=== PATIENT | male | born 1935 | race Caucasian/White ===

== ENCOUNTER 2023-05-08 07:21 | Inpatient (IN) | payer MEDICARE, SELFPAY ==
[2023-05-08] VITALS (22 sets, daily range): BP systolic 103–162; BP diastolic 43–95; PULSE 56–98; RESP 11–21; TEMP 36.2–37.1; O2SAT 91–99; BMI 22.8
--- NOTE | 2023-05-08 | DI.RAD.S_ITS ---
PROCEDURE: XR PELVIS 1-2V INDICATIONS: Post-op TECHNIQUE: 1 view of the lower pelvis acquired. COMPARISON: [facility], , XR PELVIS 1-2V, 05/08/2023, 12:52. FINDINGS: Bones: Patient is status post left hip arthroplasty, with hardware components in expected positions. The hip joint appears congruent. The visualized bony structures appear intact. Moderate right hip osteoarthritis Soft tissues: Overlying postoperative changes are noted. No suspicious soft tissue densities. IMPRESSION: Left hip arthroplasty in good position Approved by: Ruben Marrero M.D. on 05/08/2023 at 16:00
--- NOTE | 2023-05-08 | DI.RAD.S_ITS ---
PROCEDURE: XR PELVIS 1-2V INDICATIONS: INTRA OP TECHNIQUE: Intra-operative view of the pelvis and hip acquired. COMPARISON: None. FINDINGS: Bones: Intraoperative devices prior to placement of arthroplasty prostheses are in expected positions. No fractures or suspicious bony lesions. Soft tissues: Overlying surgical instrumentation IMPRESSION: Intraoperative left hip arthroplasty in progress Approved by: Ruben Marrero M.D. on 05/08/2023 at 12:51
--- NOTE | 2023-05-08 07:26 | DI.RAD.S_ITS ---
PROCEDURE: XR HIP W PEL IF DONE LT 2V INDICATIONS: pain fall TECHNIQUE: AP pelvis with lateral view(s) of the left hip(s). COMPARISON: None. FINDINGS: Bones: There is an angulated mildly displaced left femoral neck fracture. No dislocation at the hip joint. Arthritic changes are present within the lower lumbar spine and right hip. Soft tissues: The visualized bowel gas pattern is normal. No suspicious soft tissue calcifications. IMPRESSION: Mildly displaced left femoral neck fracture. Dictated by: Emerald Meneses M.D. on 05/08/2023 at 8:52 Approved by: Emerald Meneses M.D. on 05/08/2023 at 8:53
--- NOTE | 2023-05-08 07:29 | ED.FALL ---
HPI - Fall General Chief Complaint: Fall Stated Complaint: Fall Time Seen by Provider: 05/08/23 07:25 History of Present Illness HPI Narrative: Patient 88-year-old healthy male who presents today with fall. They are visiting from [place] he was actually on his way to the airport to go back home when he tripped on something on the porch landing on his left hip. No head injury no loss of consciousness. He is not on any anticoagulation or antiplatelet medication. He denies any rib pain neck pain or any other injury. Related Data Allergies Allergy/AdvReac Type Severity Reaction Status Date / Time No Known Drug Allergies Allergy Verified 05/08/23 09:13 Patient History Social History Smoking Status: Never smoker Exam Initial Vital Signs Initial Vital Signs: Vital Signs Temperature 98.6 F 05/08/23 07:28 Pulse Rate 63 05/08/23 07:28 Respiratory Rate 20 05/08/23 07:28 Blood Pressure 162/74 H 05/08/23 07:28 Pulse Oximetry 97 05/08/23 07:28 Oxygen Delivery Method Room Air 05/08/23 07:28 GENERAL: Alert very pleasant well-appearing 88-year-old male HEENT: Head atraumatic,EOMI, pupils reactive, face symmetric, moist mucous membranes NECK: Supple no vertebral tenderness CARDIOVASCULAR: Regular rate and rhythm without murmurs, rubs or gallops. RESPIRATORY: Breath sounds equal bilaterally, no wheezes rales or rhonchi. ABDOMEN: Soft, nontender. Normoactive bowel sounds all 4 quadrants. No guarding or rebound. EXTREMITIES: Normal range of motion, no clubbing or edema. Neurovascularly intact Tender left hip distal pedal pulse present pain with palpation no significant pain internal external rotation NEUROLOGICAL: Alert and oriented x4. Moving all extremities SKIN: Warm, dry, no laceration, no petechiae, no rashes or lesions. Course Orders Ordered: ED Orders 05/08/23 07:26 XR hip w pel if done LT 2V Stat 05/08/23 08:44 CMP [Comprehensive Metabolic Panel] Stat 05/08/23 09:20 CBC Auto Diff [Complete Blood Count AUTO DIFF] Stat Lactated Ringer's (Lactated Ringers) 1,000 mls @ 42 mls/hr IV CONT HAFSA Discontinued Medications Morphine Sulfate (Morphine 2 Mg/Ml Inj) 2 mg IV NOW ONE Stop: 05/08/23 08:40 Last Admin: 05/08/23 08:51 Dose: 2 mg Documented By: CAMERON Vital Signs Vital signs: Vital Signs - 8 hr 05/08/23 07:28 05/08/23 07:28 05/08/23 07:30 Temperature 98.6 F Pulse Rate 63 62 64 Respiratory Rate 20 Blood Pressure 162/74 H Pulse Oximetry 97 97 97 Oxygen Delivery Method Room Air 05/08/23 08:00 05/08/23 08:30 05/08/23 08:43 Temperature Pulse Rate 57 L 64 Respiratory Rate Blood Pressure 135/89 Pulse Oximetry 96 97 Oxygen Delivery Method 05/08/23 08:43 05/08/23 09:00 05/08/23 09:30 Temperature Pulse Rate 63 58 L 59 L Respiratory Rate Blood Pressure Pulse Oximetry 97 98 98 Oxygen Delivery Method 05/08/23 09:55 05/08/23 09:55 Temperature Pulse Rate 56 L Respiratory Rate Blood Pressure 149/79 H Pulse Oximetry 97 Oxygen Delivery Method MDM - Fall Lab Data 05/08/23 09:20 05/08/23 08:44 Labs: Lab Results 05/08/23 05/08/23 Range/Units 08:44 09:20 WBC 9.3 (4.5-11.0) X10^3/uL RBC 4.29 L (4.5-5.9) X10^6/uL Hgb 13.1 L (13.5-17.5) g/dL Hct 38.5 L (41-53) % MCV 89.7 (80-100) fL MCH 30.4 (26-34) PG MCHC 33.9 (30-36) % RDW 13.1 (11.6-14.8) % Plt Count 185 (150-400) X10^3/uL Neut % (Auto) 85.4 H (50-75) % Lymph % (Auto) 7.4 L (25-40) % Howell % (Auto) 4.6 (3-14) % Eos % (Auto) 2.0 (2-4) % Baso % (Auto) 0.6 (0-2) % Neut # (Auto) 8000 H (6372-2046) /uL Lymph # (Auto) 700 L (1647-1927) /uL Howell # (Auto) 400 (0-900) /uL Eos # (Auto) 200 (0-450) /uL Baso # (Auto) 100 (0-100) /uL Sodium 135 L (137-145) mmol/L Potassium 3.9 (3.4-5.1) mmol/L Chloride 103 (98-107) mmol/L Carbon Dioxide 26 (22-32) mmol/L BUN 23 H (9-20) mg/dL Creatinine 1.01 (0.66-1.25) mg/dL Estimated GFR > 60 (>60) mL/min BUN/Creatinine Ratio 22.8 H (6-22) Glucose 89 (80-110) mg/dL Calcium 9.5 (8.4-10.2) mg/dL Total Bilirubin 1.7 H (0.2-1.3) mg/dL AST 26 (17-59) IU/L ALT 17 (<50) IU/L Alkaline Phosphatase 76 (38-126) U/L Total Protein 7.1 (6.3-8.2) g/dL Albumin 4.2 (3.5-5.0) g/dL Globulin 2.9 (1.7-4.1) g/dL Albumin/Globulin Ratio 1.4 (1.0-2.8) Imaging Data Extremity x-ray #1: Radiologist's Impression: PROCEDURE: XR HIP W PEL IF DONE LT 2V INDICATIONS: pain fall TECHNIQUE: AP pelvis with lateral view(s) of the left hip(s). COMPARISON: None. FINDINGS: Bones: There is an angulated mildly displaced left femoral neck fracture. No dislocation at the hip joint. Arthritic changes are present within the lower lumbar spine and right hip. Soft tissues: The visualized bowel gas pattern is normal. No suspicious soft tissue calcifications. IMPRESSION: Mildly displaced left femoral neck fracture. Dictated by: Emerald Meneses M.D. on 05/08/2023 at 8:52 MDM Narrative Medical decision making narrative: Patient healthy 88-year-old male who presents today with a mechanical ground level fall landing on his left hip. X-ray confirms a left femoral neck fracture. Neurovascularly intact. No other injuries. Blood work has been reviewed and overall reassuring. Orthopedics Dr. Garcia updated patient's symptoms test results keep NPO will try and get fixed today Dr. Lester accepts patient Discharge Plan Departure Patient Disposition: Admitted As Inpatient Clinical Impression: Closed left hip fracture Admit Date/Time: 05/08/23 10:16 Admit Provider: Dana Lester
--- NOTE | 2023-05-08 07:49 | PC.NURSE ---
pt declined to have IV placed and bloodwork drawn. states that she just wanted the xray to get done to check for breaks. dr costello notified.
[2023-05-08] MEDS: MORPHINE 2 MG/ML INJ IV (08:51)
--- NOTE | 2023-05-08 09:01 | PM.CN ---
History of Present Illness Consult details Date Patient Seen: 05/08/23 Time Patient Seen: 11:13 Chief complaint: Fall Reason for consult: Left displaced femoral neck fracture Requesting provider: Suzy Cosme Narrative: 88-year-old male was on his way to the airport to go back home to [place] this morning and fell in the driveway sustained a displaced left femoral neck fracture. Seen at [facility]. Indicated for admission and fixation of his hip fracture. Hit his left elbow and has a bruise. is with him and his POA. Patient has some mild dementia. No other medications or serious medical problems. Has had bilateral knee replacements. Remote history of head trauma as a young person with multiple cranial operations. Meds Home Medications and Allergies Allergies Allergy/AdvReac Type Severity Reaction Status Date / Time No Known Drug Allergies Allergy Verified 05/08/23 09:13 Review of Systems Review of Systems Narrative: Dementia mild ROS: Yes All systems reviewed with the patient and are negative except as otherwise documented Exam Vital Signs (past 8 hours): - 05/08/23 07:28 Temperature 98.6 F Pulse Rate 63 Respiratory Rate 20 Blood Pressure 162/74 H Pulse Oximetry 97 Oxygen Delivery Method Room Air Oxygen Delivery Method Room Air Narrative Exam Narrative: Alert oriented no acute distress lying in bed. Spouse at bedside HEENT exam Normocephalic atraumatic Heart regular rate and rhythm Lungs clear to auscultation Left upper extremity with ecchymosis around elbow demonstrates full flexion extension of the elbow. Sensation grossly intact to light touch Moving right upper extremity without limitation No tenderness to the right lower extremity Left lower extremity is shortened and externally rotated tenderness around the left groin. Demonstrates dorsiflexion plantar flexion of the ankle well-healed surgical scar over the knee consistent with knee replacement compartments soft. Palpable distal pulses. Remainder of motor and strength exam on left lower extremity deferred due to known fracture Objective Imaging AP pelvis and left lateral hip: My impression: AP pelvis and left lateral hip Displaced left femoral neck fracture. Right hip arthritis Labs 05/08/23 09:20 05/08/23 08:44 PFS Social History marital status: household members: spouse Tobacco & Substance Use Smoking Status: Never smoker Assessment & Plan Assessment and plan (1) Closed left hip fracture: Qualifiers: Encounter type: initial encounter Qualified Code(s): S72.002A - Fracture of unspecified part of neck of left femur, initial encounter for closed fracture Status: Acute Plan Left displaced femoral neck fracture. Indicated for inpatient admission fixation was cemented hemiarthroplasty. 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 The advantage of surgery is immediate mobilization and weight-bearing and helps avoid the morbidity of prolonged bed rest. We discussed risks of heart attack stroke fracture persistent pain infection DVT and pulmonary embolism discussed risk for dislocation. Patient agrees to surgery. His spouse ANGEL signed a consent for him as he has been having trouble with his handwriting lately. Patient will be indicated for inpatient admission likely 2-3 night stay and we will need to have assistance with social work for dispo planning. [place] home [place] stairs and then eventually need to get back to [place]. Assessment & Plan narrative: Level decision-making series orthopedic injury hip fracture requires inpatient admission and surgical fixation. Surgical risks and benefits and alternatives discussed. Recommendation for surgical treatment. Time Spent With Patient Time with patient: 50 to 69 minutes with 50% spent counseling/coordinating care
[2023-05-08 09:07] LABS: Alanine Aminotransferase 17 IU/L (<50); Albumin 4.2 g/dL (3.5-5.0); Albumin Globulin Ratio 1.4 (1.0-2.8); Alkaline Phosphatase 76 U/L (38-126); Aspartate Aminotransferase 26 IU/L (17-59); BUN Creatinine Ratio 22.8 (6-22); Bilirubin Total 1.7 mg/dL (0.2-1.3); Blood Urea Nitrogen 23 mg/dL (9-20); Calcium 9.5 mg/dL (8.4-10.2); Carbon Dioxide 26 mmol/L (22-32); Chloride 103 mmol/L (98-107); Estimated Glomerular Filt Rate > 60 mL/min (>60); Globulin 2.9 g/dL (1.7-4.1); Glucose 89 mg/dL (80-110); HEMOLYSIS 27 (0-50); Potassium 3.9 mmol/L (3.4-5.1); Sodium 135 mmol/L (137-145); Total Protein 7.1 g/dL (6.3-8.2)
[2023-05-08 09:26] LABS: Add Manual Diff / Slide Review NO; Basophils Absolute Auto 100 /uL (0-100); Basophils Percent Auto 0.6 % (0-2); Eosinophils Absolute Auto 200 /uL (0-450); Hematocrit 38.5 % (41-53); Hemoglobin 13.1 g/dL (13.5-17.5); Lymphocytes Absolute Auto 700 /uL (1100-4500); Lymphocytes Percent Auto 7.4 % (25-40); Mean Corpuscular HGB Conc 33.9 % (30-36); Mean Corpuscular Hemoglobin 30.4 PG (26-34); Mean Corpuscular Volume 89.7 fL (80-100); Monocytes Absolute Auto 400 /uL (0-900); Monocytes Percent Auto 4.6 % (3-14); Neutrophils Absolute Auto 8000 /uL (1500-7000); Neutrophils Percent Auto 85.4 % (50-75); Platelet Count 185 X10^3/uL (150-400); Red Blood Cell Count 4.29 X10^6/uL (4.5-5.9); Red Cell Distribution Width 13.1 % (11.6-14.8); White Blood Cell Count 9.3 X10^3/uL (4.5-11.0)
--- NOTE | 2023-05-08 10:39 | PC.NURSE ---
1030 Patient admitted to room 204 from ED, awake and alert. VSS obtained. RT @ bedside (EKG). Off unit to Surgery accompanied by Ainsley GANNON. Belongings in room.
[2023-05-08] MEDS: LACTATED RINGERS 1,000 ML 42 ML IV ×2 (11:14→13:16)
--- NOTE | 2023-05-08 11:51 | P.OP_ITS ---
Operative Date/Time/Diagnoses Date of procedure: 05/08/23 Time of procedure: 12:15 Pre-op diagnosis: Left femoral neck fracture, displaced Post-op diagnosis: same Procedure & Clinicians Procedure: Hemiarthroplasty left hip for femoral neck fracture CPT 53368 Same procedure as scheduled: Yes Indications: Patient is an 88-year-old male that had a ground level fall this morning. They spend a few weeks a year and a quarter and most of the year in [place]. They were headed to the airport shuttle to go back to [facility] today when the fall occurred. Patient was unable to ambulate and was brought to [facility]. The patient has a displaced left femoral neck fracture. He is indicated for hemiarthroplasty. The patient and his POA was counseled regarding the rationale for this and the risk surgery. The risks include infection, bleeding, damage to nerves and blood vessels or tendons, and wound dehiscence, fracture, dislocation, persistence of pain, DVT, PE, inability to return to the desired level of function, hardware breakage or prominence, generalized dissatisfaction with the surgical procedure, need for additional procedures, cardiopulmonary complications and . The patient and his CONNIEA expressed understanding of all the risks and elected to proceed. Informed consent was signed. Surgeon: Brisa Garcia [employer] Mechanic: Lenin Ashley Anesthesia Type: General and Local Operative Notes Findings: Displaced femoral neck fracture, left Closure Type: primary Specimen(s): none sent Prosthetic devices, grafts, tissues, transplants, or devices: Diaz and nephew Synergy cemented stem cobalt chromium mL PMMA size 12 10 mm distal post centralizer Medium bone plug canal restrictor Tandem unipolar +4 taper sleeve 53 mm cobalt chromium tandem unipolar head Applied: catheter Estimated Blood Loss (mL): 200 Blood products transfused: none Tourniquet time (min): 0 Procedure in detail: During the operation, the services of a physician assistant wrestling coach were medically indicated and necessary to provide the exposure of the operative site for the surgical procedure and to maintain the limb in a proper position to carry out the operation safely and efficiently. Without a qualified advertising assistant manager being present this would extended the operative procedure and made the procedure technically more difficult to perform. Hemiarthroplasty for femoral neck fracture CPT code 79294. Patient was seen in the preoperative area the site of surgery was marked and informed consent confirmed. The patient was brought back to the operating room by the anesthesia team. Patient was positioned supine on the operative table. General anesthetic was administered. Patient was then moved into the lateral position. The hip fish hatchery assistant positioner pads were then placed. A well-padded axillary roll was placed and the arms were appropriately positioned. The affected lower extremity was prepped and draped from the ankle to the iliac crest with ChloraPrep in the standard fashion sterile drapes were placed. Formal time-out procedure was performed confirming the patient's side and site of surgery, presence of informed consent, administration of appropriate preoperative antibiotics. Hip was approached through a standard posterior approach. Dissection was carried down through the skin and subcutaneous tissues sharply through the skin and then with the Bovie through the subcutaneous tissues. The fascia suresh was exposed and opened. Fascia was opened using the Bovie and the gluteus oleg was spread with finger retraction. The Charnley retractor was placed. The inflamed bursa was resected. The piriformis was then identified. A Cobra retractor was placed under the gluteus medius to help expose the external rotators. The piriformis and short external rotators were tagged with a 2 Ethibond and divided off the trochanter. These were then retracted posteriorly to protect sciatic nerve. The femur was then flexed and internally rotated to present the femoral neck and the fracture. A corkscrew and a Moore were used to remove the femoral head from the acetabulum. This was measured to fit a 53 mm head. Next the femur was presented. A clean-up neck cut was made in a minimal fashion. The trial head size was trialed in the acetabulum. Attention was then turned to the femur. The canal was opened with a box cutting osteotome. This followed by the canal finder and a lateralizing Reamer. Then a curette was used laterally to remove additional bone. The tapered reamers were then used up to a size 12. Then broaching was sequentially done up to a size 12. Trial components were placed. The patient was stable in the position of sleep, squatting and could be put through a range of motion with 70? of internal rotation without dislocation. This was felt to be appropriate. An intraop a AP pelvis x-ray was obtained to assess component position. Position was good but the patient was a little short so decision was made to use a +4. Final components were then selected. The final stem was a size 12. Femoral canal was prepared . The distal medium restrictor was placed approximately 1 cm distal to the end of the planned implant. The bone was meticulously cleaned with pulse lavage. Canal was then packed with gauze. Two packages of cement were mixed and carefully pressurized into the femoral canal. The femoral component was then placed without difficulty. This was held in place until the cement hardened. The repeat trial reduction showed good range of motion and stability. The final head and neck were then carefully placed. The wound was irrigated. The capsule and muscular flap was repaired with the 2. Ethibond. Next the short external rotators were repaired to the greater trochanter through drill holes in the greater trochanter using the 2.5 drill and a Hewson suture Passer. These were tied with the leg in abduction. The wound was then irrigated again. The fascia suresh was closed with 0 Vicryl and the subcutaneous layer was closed with 2-0 Vicryl and the skin with morgan. An Aquacel dressing was placed. A pillow was placed for protection. The drapes removed and the patient was taken to the recovery room in good condition. There no immediate complications from this procedure. All counts were correct. Postoperative AP pelvis x-ray was obtained in the PACU showed appropriate alignment of the cemented hip hemiarthroplasty with no evidence of fracture. And patient demonstrated active dorsiflexion plantar flexion of the operative extremity in the PACU Complications: none Post-operative Condition: stable Disposition: PACU Plan for aftercare: Weightbear as tolerated Posterior hip precaution x6 weeks Pillows between the legs while in bed or if unable to keep regular pillows then abduction pillow Ambulate with the assistive device Lovenox 40 mg subQ for DVT prophylaxis x4 weeks for 28 total days 2 doses of Ancef postop antibiotics Dispo when medically stable Follow up in Orthopedic Clinic in 2 weeks for staple removal
[2023-05-08] MEDS: CEFAZOLIN 2 GM/100 ML PREMIX 100 ML IV ×2 (12:01→20:47)
[2023-05-08] MEDS: TRANEXAMIC ACID 1,000 MG in SODIUM CHLORIDE 0.9% 100 ML 200 MG IV ×2 (12:10→13:55)
--- NOTE | 2023-05-08 12:32 | SUR.OPER ---
Lateral on padded OR bed. Gel axillary roll. Arms secured on padded armboard with pillow supporting top arm. Padded hip positioner braces x4 - anterior and posterior chest and pelvis. Additional gel pad used anterior pelvis. Gel pad under bottom leg from knee to foot and secured with tape over sheet.
[2023-05-08] MEDS: BUPIVACAINE LIPOSOME 266 MG/20 ML VIAL INJ (12:45)
[2023-05-08] MEDS: BUPIVACAINE 0.25% (PF) VIAL 30 ML INJ (12:46)
[2023-05-08] MEDS: EPINEPHrine 1 MG/ML 0.15 MG INJ (12:48)
[2023-05-08] MEDS: LACTATED RINGERS 1,000 ML 100 ML IV (15:54)
[2023-05-08] MEDS: ACETAMINOPHEN 325 MG TABLET 650 MG PO ×2 (15:56→20:48)
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
[2023-05-08] MEDS: DOCUSATE 100 MG CAPSULE PO (20:48)
[2023-05-08] MEDS: SENNOSIDES 8.6 MG TABLET 17.2 MG PO (20:48)
[2023-05-09 00:40] VITALS: BP 99/51; PULSE 66; RESP 18; TEMP 36.8; O2SAT 96
[2023-05-09] MEDS: LACTATED RINGERS 1,000 ML 100 ML IV (02:18)
[2023-05-09] MEDS: ACETAMINOPHEN 325 MG TABLET 650 MG PO ×4 (03:31→20:45)
[2023-05-09] MEDS: CEFAZOLIN 2 GM/100 ML PREMIX 100 ML IV (03:32)
[2023-05-09 06:00] LABS: Add Manual Diff / Slide Review NO; Basophils Absolute Auto 0 /uL (0-100); Basophils Percent Auto 0.2 % (0-2); Eosinophils Absolute Auto 0 /uL (0-450); Eosinophils Percent Auto 0.3 % (2-4); Hematocrit 34.3 % (41-53); Hemoglobin 11.9 g/dL (13.5-17.5); Lymphocytes Absolute Auto 700 /uL (1100-4500); Lymphocytes Percent Auto 5.8 % (25-40); Mean Corpuscular HGB Conc 34.7 % (30-36); Mean Corpuscular Hemoglobin 30.9 PG (26-34); Monocytes Absolute Auto 800 /uL (0-900); Monocytes Percent Auto 6.4 % (3-14); Neutrophils Absolute Auto 10200 /uL (1500-7000); Neutrophils Percent Auto 87.3 % (50-75); Platelet Count 161 X10^3/uL (150-400); Red Blood Cell Count 3.85 X10^6/uL (4.5-5.9); White Blood Cell Count 11.7 X10^3/uL (4.5-11.0)
[2023-05-09 06:04] LABS: Alanine Aminotransferase 23 IU/L (<50); Albumin 3.4 g/dL (3.5-5.0); Albumin Globulin Ratio 1.2 (1.0-2.8); Alkaline Phosphatase 61 U/L (38-126); Aspartate Aminotransferase 64 IU/L (17-59); BUN Creatinine Ratio 19.3 (6-22); Bilirubin Total 1.5 mg/dL (0.2-1.3); Blood Urea Nitrogen 17 mg/dL (9-20); Calcium 8.7 mg/dL (8.4-10.2); Carbon Dioxide 27 mmol/L (22-32); Chloride 100 mmol/L (98-107); Estimated Glomerular Filt Rate > 60 mL/min (>60); Globulin 2.8 g/dL (1.7-4.1); Glucose 115 mg/dL (80-110); HEMOLYSIS < 15 (0-50); Potassium 3.7 mmol/L (3.4-5.1); Sodium 135 mmol/L (137-145); Total Protein 6.2 g/dL (6.3-8.2)
--- NOTE | 2023-05-09 06:49 | PM.PNPO.1 ---
Subjective Subjective Date Patient Seen: 05/09/23 Time Patient Seen: 07:24 Interval history: Pt sleeping, arouses easily to voice. Some confusion in answering questions but follows commands appropriately. States he has pain only when moving. Exam Vital Signs (past 8 hours): - 05/09/23 00:40 Temperature 98.2 F Pulse Rate 66 Respiratory Rate 18 Blood Pressure 99/51 L Pulse Oximetry 96 Oxygen Flow Rate 0 Oxygen Delivery Method Room Air Oxygen Flow Rate 0 Narrative Exam Narrative: 5/5 strength in PF, DF, EHL on left. 0/5 hip flexion, quadriceps, hamstrings. Calf soft and compressible. Aquacel dressing CDI. Objective Labs 05/09/23 05:30 05/09/23 05:30 Labs: Laboratory Results - last 24 hr 05/08/23 05/08/23 05/09/23 08:44 09:20 05:30 WBC 9.3 11.7 H RBC 4.29 L 3.85 L Hgb 13.1 L 11.9 L Hct 38.5 L 34.3 L MCV 89.7 89.0 MCH 30.4 30.9 MCHC 33.9 34.7 RDW 13.1 13.0 Plt Count 185 161 Neut % (Auto) 85.4 H 87.3 H Lymph % (Auto) 7.4 L 5.8 L [place] % (Auto) 4.6 6.4 Eos % (Auto) 2.0 0.3 L Baso % (Auto) 0.6 0.2 Neut # (Auto) 8000 H 72039 H Lymph # (Auto) 700 L 700 L [place] # (Auto) 400 800 Eos # (Auto) 200 0 Baso # (Auto) 100 0 Sodium 135 L 135 L Potassium 3.9 3.7 Chloride 103 100 Carbon Dioxide 26 27 BUN 23 H 17 Creatinine 1.01 0.88 Estimated GFR > 60 > 60 BUN/Creatinine Ratio 22.8 H 19.3 Glucose 89 115 H Calcium 9.5 8.7 Total Bilirubin 1.7 H 1.5 H AST 26 64 H ALT 17 23 Alkaline Phosphatase 76 61 Total Protein 7.1 6.2 L Albumin 4.2 3.4 L Globulin 2.9 2.8 Albumin/Globulin Ratio 1.4 1.2 PFSH Social History marital status: household members: spouse Smoking Status: Never smoker Assessment & Plan Post-op Assessment and plan (1) Status post hip hemiarthroplasty: Assessment and Plan narrative: Weightbear as tolerated on left leg. Posterior hip precaution x6 weeks. PT while inpatient. Pillows between the legs while in bed or if unable to keep regular pillows then abduction pillow. Ambulate with the assistive device (walker) to prevent falls. Lovenox 40 mg subQ for DVT prophylaxis x4 weeks for 28 total days. Disposition and pain control per hospitalist service. Follow up in [facility] in 2 weeks for staple removal. If pt returns home prior to this time, staple removal can be done by PCP or another provider. He should f/u w/ Dr Garcia or local orthopedist in 6 weeks for repeat imaging and symptom check. Postoperative Procedures: Procedures Operation Date: 05/08/23 12:45 Actual Procedure Side Surgeon p Hip Hemiarthroplasty Left Brisa Garcia MD Postoperative day: 1
[2023-05-09 08:00] VITALS: BP 115/65; PULSE 76; RESP 18; TEMP 37.1; O2SAT 96
[2023-05-09] MEDS: ENOXAPARIN 40 MG/0.4 ML SYRINGE SUBCUT (09:11)
[2023-05-09] MEDS: DOCUSATE 100 MG CAPSULE PO ×2 (09:12→20:45)
[2023-05-09] MEDS: OXYCODONE IR 5 MG TABLET PO ×2 (09:12→15:38)
--- NOTE | 2023-05-09 11:02 | PT.IIE ---
Current Diagnoses Fracture of unspecified part of neck of left femur, initial encounter for closed fracture (05/08/23) Presence of unspecified artificial hip joint (05/08/23) Surgery Performed Operation Date: 05/08/23 12:45 Actual Procedures p Hip Hemiarthroplasty(Left) - Brisa Garcia MD Physical Therapy Inpatient Evaluation/Re-Eval M1 PT/OT-IP Prior Functional Status Start: 05/09/23 07:59 Freq: NEEDED Status: Active Protocol: Document 05/09/23 11:02 AW (Rec: 05/09/23 12:17 AW [id number]) Medical Review Prior Functional Status Communication Pt is able to make his needs known but with some confusion. Spouse confirms pt has baseline dementia. Mobility and Gait Independent to mod I using SPC inconsistently. Pt forgets to use AD. He has had other falls. Activities of Daily Living and IADL's Independent with basic ADL's. Spouse states he continues to drive but she has concerns about this. Social History Household Members spouse Living Arrangements House Number of Floors (Floors) One Floor Number of Stairs To Enter/Railing? 2 JOS[place]UA with no rail at front entrance. Garage entrance has rails but stairs are very tall . Home Environment Standard Height Toilet,Walk in Shower Home Equipment Straight Cane,Shower Seat with Backrest Employment Status Retired Additional Social History Comment Pt is a retired mechanical inspector. He lives with his in [place], [place]. They have a home in [place] where they stay when visiting local family. M2 PT-IP Current Condition Start: 05/09/23 07:59 Freq: NEEDED Status: Active Protocol: Document 05/09/23 11:02 AW (Rec: 05/09/23 12:17 AW [id number]) Physical Therapy Current Condition Current Condition Evaluation Date 05/09/23 Treatment Diagnosis L femoral neck fx s/p hemiarthroplasty; impaired mobility and gait Onset Date 05/08/23 M3 PT-IP Subjective Start: 05/09/23 07:59 Freq: NEEDED Status: Active Protocol: Document 05/09/23 11:02 AW (Rec: 05/09/23 12:17 AW [id number]) Subjective Physical Therapy Visit Type Type Initial Evaluation Visit Start Time 10:14 Visit Stop Time 11:02 Total Visit Minutes 48 Notes Pt's spouse arrived at the end of mobility assessment. Number of MARKETING EDITOR Visits 0 Physical Therapy Visit Comments Patient Comments Pt is willing to participate with PT. He denies pain at rest. Patient Goals Hopes to return to [place] soon. Therapy Pain Assessment Pain When Pain Assessed During Mobility Pain Present Pain Present Pain Reported Location Left Hip Intensity 8 Scale Used Numeric (0 - 10) Pain Behaviors Facial Grimacing,Wincing Pain Management Techniques Apply Cold,Timing of Activity with Medications M4 PT-IP Mobility and Gait Start: 05/09/23 07:59 Freq: NEEDED Status: Active Protocol: Document 05/09/23 11:02 AW (Rec: 05/09/23 12:17 AW [id number]) PT-Bed Mobility Assessment Supine to Sit Supine to Sit Moderate Assistance,1 Person Assistance,Head of Bed Elevated,Bedrails Scooting Scooting to Edge of Bed Moderate Assistance PT-Transfer Assessment Sit to and From Stand Sit to and from Stand Maximum Assistance,1 Person Assistance,2 Person Assistance ,Use of Upper Extremities Equipment Transfer Assistive Device Gait Belt,Front Wheeled Walker Orthotic/Prosthetic Devices or Brace: No Transfers Transfer Destination Chair Transfer Technique Stand Step Pivot Transfer Ability Level of Assist Moderate Assistance,Use of Upper Extremities Comments Mobility Comments Pt is found resting in bed, willing to participate with PT . See Other Assessments below for VS during tx. PT educates pt on his posterior hip precautions and weightbearing status. Pt is very [place] and appears to need extra processing time for instructions. Mod A to sit up to EOB. Pt requires extra time , verbal cues, and demo to scoot forward for feet flat on floor and for posterior hip precautions. Pt again needs verbal and tactile cues to maintain precautions during initial sit to stand attempt - max A using FWW. Pt stands ~ 15 seconds before requesting to sit but would like to try again. He stands with max assist and transfers to bedside chair. PT cues pt to line up with the chair and for hand placement to control descent as he sits. Pt needs continuous cues for safe mobility within precautions. He stands from the chair max A and uses FWW to ambulate to the sink and back. PT keeps verbal cues simple but pt struggles to follow directions and appears overwhelmed. He does not understand directions for hand placement and needs [place] guidance for safe transfers back to the chair. Pt is positioned reclined in the chair as care transitions to hospitalist MD and nursing. Gait Assessment Gait Gait Assistance Required: Contact Guard Assist,Minimum Assistance Distance (Feet) 10 Able to Maintain Weight Bearing Status Yes During Gait Assistive Devices Assistive Device Gait Belt,Front Wheeled Walker Gait Deviations General Gait Pattern Antalgic,Decreased Stride Length,Decreased Feet Clearance,Step-to Gait Factors Limiting Gait Function Factors Limiting Gait Function Difficulty Following Directions,Limited Range of Motion,Pain,Poor Balance,Poor Safety Awareness Comments Gait Comments Straight line gait is relatively fluid but pt struggles with changes in direction and turns, needs assist for walker management Stair Climbing Assessment Comments Stair Climbing Comments Not assessed PT-Balance Assessment Sitting Balance and Reactions Static Sitting Balance Ability Good Dynamic Sitting Balance Ability Good Standing Balance and Reactions Static Standing Balance Ability Poor Dynamic Standing Balance Ability Poor Device Used FWW M5 PT-IP Objective Assessments Start: 05/09/23 07:59 Freq: NEEDED Status: Active Protocol: Document 05/09/23 11:02 AW (Rec: 05/09/23 12:17 AW [id number]) Orientation Orientation/Cognition Level of Alertness Confusional State Orientation Name,Place,Situation Language Function Ability Hard of Hearing Safety Awareness Decreased Safety Awareness Memory Description Short Term Impaired Gross Range of Motion Upper Extremity ROM Assessment Within Functional Limits Lower Extremity ROM Assessment Left Impaired Strength Upper Extremity Strength Assessment Within Functional Limits Lower Extremity Strength Assessment Left Impaired Hip 3-/5 Knee 4/5 Comments Strength Comments RLE grossly 4/5 to 4+/5 Other Assessments Other Other Assessments BP 121/68 HR 79 supine BP 94/68 HR 82 sitting ( asymptomatic) BP 114/41 HR 100 after transfer M6 PT-IP Treatment Start: 05/09/23 07:59 Freq: NEEDED Status: Active Protocol: Document 05/09/23 11:02 AW (Rec: 05/09/23 12:17 AW [id number]) Physical Therapy Treatment Exercises Exercises Ankle Pumps,Gluteal Sets,Quad Sets,Heel Slides Education Education Provided Precautions,Weight Bearing Status,Post-Op Packet,Safety M7 PT-IP Assessment and Plan Start: 05/09/23 07:59 Freq: NEEDED Status: Active Protocol: Document 05/09/23 11:02 AW (Rec: 05/09/23 12:17 AW [id number]) PT Summary Assessment and Plan Potential Rehabilitation Potential Good Status of Condition at Evaluation Evolving Summary Impairments Pain,ROM,Strength,Balance, Cognition,Bed Mobility, Transfers,Gait Assessment Summary Gopi Lomeli is an 88 yo man seen for PT evaluation on POD1 following left hip hemiarthroplasty to treat femoral neck fracture. He broke his hip in a fall at his [place] home. He was just leaving to catch the shuttle back to the airport to return to his primary residence in [place] when he fell. Pt is typically modified independent with inconsistent use of SPC. He has dementia at baseline. He lives with his spouse. Their [place] home is one level with steps to enter. CLOF: Pt requires max verbal and tactile cues to maintain posterior hip precautions. He needs mod to max assist for transfers, min assist for short distance gait with FWW. Pt will require 24/7 assist at discharge to reduce his risk of hip dislocation. He would benefit from daily therapy activities to improve his strength, transfers, and gait. PT recommends SNF for daily rehab at this time but pt has potential to progress toward possible discharge home with assist. He would need near 24/ 7 assist to successfully manage at home. Will continue to assess and refine discharge recommendation based on mobility progression. Goals Bed Mobility Goal Standby Assistance Transfer Goal Contact Guard Assistance,Front Wheeled Walker Gait Goal Contact Guard Assistance,Front Wheel Walker Gait Distance 50 Other Goals - up/down 2 steps using SPC and RN SPINE/min assist - Pt maintains posterior hip precautions with all mobility Days to Meet Goals 10 Frequency of Treatment Frequency Of Treatment Twice a Day Treatment Plan Physical Therapy Treatment Plan Bed Mobility Training,Transfer Training,Gait Training, Therapeutic Exercise,Balance Retraining,Post Op Education, Discharge Planning,Hot or Cold Pack,Neuromuscular Re-ed Other Recommendations and Next Treatment continued education on hip Focus precautions. use simple cues. transfer training Precautions Posterior Hip Precautions No Hip Flexion > 90 degrees,No Hip Internal Rotation,No Hip Adduction Weight Bearing Status Weight Bearing Status Weight Bear as Tolerated Recommendations To Nursing Amount of Assist Needed 2 Person Assist Discharge Recommendations PT Discharge Recommendations SNF Rehab Equipment Needed for Home Before FWW Discharge Transportation Needs at Discharge Wheelchair/Cabulance
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
--- NOTE | 2023-05-09 11:49 | CM.DANOTE ---
Patient is an 88 yo male who was admitted on 05/08/23 for Fall/Hip Fx. Pt has MCR and COMM for insurance and his PCP is not listed. EMR was reviewed. Per MD, pt had a left femoral neck fx and elbow injury and was taken by Ortho for surgery yesterday 05/08/23. Pt not yet medically stable to d/c yet today and to work with PT/OT. Per PT, pt currently having some difficulty remembering hip precautions and recommending with wait staff 2PA but was 1PA with PT. SW met bedside with pt and spouse/DPOA Pat and explained role and they confirm they live client partner at their house here in [place] and were getting ready to fly to their home in [place] for the winter. Both are quite active and independent at baseline, spouse is still working and pt has some baseline short term memory loss. They deny any hx of HH or SNF. They have a local Dtr Lexii who lives in [place] and a granddtr who is local in [place] and both can assist some at d/c if needed. Spouse states they plan to stay in [place] now until pt more mobile with his ambulation before flying back to [place]. SW discussed possible options of HH vs SNF and provided Choice lists to review. Spouse states she is hopeful that pt can d/c to their home in [place] with HH and also some hired CG/PT that they know locally but spouse realistic that if pt cannot remember his hip precautions and is too much assist then he will need SNF rehab. Spouse aware of the Medicare qualifying days for SNF and plans to be bedside in the AM around 0930 to see how pt is doing towards determining SNF vs HH. If SNF needed, currently preference is to stay in [place] at [facility] as spouse is working remotely and can visit more easily. No HH preference at this time. SW called [facility] and made new referral and they will review and follow to determine if they can accept if SNF needed. Pt would have qualifying Medicare days for SNF by 05/11. Plan: SW to follow closely after further PT later today and then CG training with spouse bedside in the AM around 0930 towards helping determine [facility] vs home with HH and family assist. RIVER Pulido Discharge Planning/Care Management CM Discharge Assessment Start: 05/09/23 11:40 Freq: Status: Active Protocol: Document 05/09/23 11:40 BF (Rec: 05/09/23 11:44 BF [id number]) Discharge Planning Assessment Assigned Timber Rider RIVER Shultz DPOA/Assigned Designee Name spouse Nery Contact Information [phone] Advance Directives? No Advance Directives on File Yes History Provided By Patient,Significant Other, Medical Record Has Patient been admitted in last 30 No days? Prior Living Arrangements House Household Members spouse Type of transporation used prior to Relies on Others admit Independent with ADL's Yes: mostly Is patient alert and oriented? No: short term memory loss Needs Assistance With Meal Prep,Managing Medications ,Home Chores / Shopping Caregiver for Another No DME Already Rented / Owned FWW / Walker Patient/Family Preference [facility],Home with Home Health Comment SNF vs HH pending progress Barriers to Discharge No Comment spouse hopeful for home Discharge Plan [facility] Transportation Arrangement spouse and Dtr if safe for home vs SNF facility van Referrals Initiated [facility] Comment Pending further PT to determine HH vs SNF Medicare Choice List Provided Yes Medicare choice list reviewed on family electronic tablet with SNF/HH Preference [facility] reviewing in case SNF needed Has Agency SNF been contacted Yes Whiteboard Updated in Patient Room with Yes name and ext. # of Timber Rider Review Status In Process Please Provide Date Initial DC 05/09/23 Assessment Was Performed Next Review Type Continued Stay Review
--- NOTE | 2023-05-09 13:07 | PC.NURSE ---
wolf removed, pt tried to pull out his wolf. he's a little confused. wolf tip intact, pt tolerated well.
--- NOTE | 2023-05-09 15:59 | PT.IPTN ---
Current Diagnoses Fracture of unspecified part of neck of left femur, initial encounter for closed fracture (05/08/23) Presence of unspecified artificial hip joint (05/08/23) Surgery Performed Operation Date: 05/08/23 12:45 Actual Procedures p Hip Hemiarthroplasty(Left) - Brisa Garcia MD Physical Therapy Treatment Note M2 PT-IP Current Condition Start: 05/09/23 07:59 Freq: NEEDED Status: Active Protocol: Document 05/09/23 11:02 AW (Rec: 05/09/23 12:17 AW [id number]) Physical Therapy Current Condition Current Condition Evaluation Date 05/09/23 Treatment Diagnosis L femoral neck fx s/p hemiarthroplasty; impaired mobility and gait Onset Date 05/08/23 M3 PT-IP Subjective Start: 05/09/23 07:59 Freq: NEEDED Status: Active Protocol: Document 05/09/23 15:59 AW (Rec: 05/09/23 16:12 AW [id number]) Subjective Physical Therapy Visit Type Type Treatment Note Visit Start Time 15:30 Visit Stop Time 15:54 Total Visit Minutes 24 Notes Pt's step-Lexii horton, is present throughout Number of FINANCIAL COMPLIANCE OFFICER Visits 0 Physical Therapy Visit Comments Patient Comments Pt is feeling uncomfortable in the chair, hopeful to reposition after trying to walk. Therapy Pain Assessment Pain When Pain Assessed At Rest Pain Present Pain Present Denied Pain Location Left Hip Intensity 9 Scale Used Numeric (0 - 10) Pain Behaviors Facial Grimacing,Wincing Pain Management Techniques Apply Cold,Timing of Activity with Medications M4 PT-IP Mobility and Gait Start: 05/09/23 07:59 Freq: NEEDED Status: Active Protocol: Document 05/09/23 15:59 AW (Rec: 05/09/23 16:12 AW [id number]) PT-Transfer Assessment Sit to and From Stand Sit to and from Stand Maximum Assistance,1 Person Assistance,Use of Upper Extremities Equipment Transfer Assistive Device Gait Belt,Front Wheeled Walker Orthotic/Prosthetic Devices or Brace: No Transfers Transfer Destination Chair Transfer Technique Stand Step Pivot Transfer Ability Level of Assist Moderate Assistance,Use of Upper Extremities Comments Mobility Comments Gopi is up in the chair with feet on the ground. His left hip rests in internal rotation . PT educates pt and daughter on neutral positioning. Max A and verbal cues for knee extension to stand to FWW. Pt finds his balance and ambulates 15 feet in the room, slightly steadier during turns than at the AM session. Cues are needed to avoid left hip internal rotation during turns. Pt returns to sitting in the chair with verbal and tactile cues for hip precautions. Gait Assessment Gait Gait Assistance Required: Contact Guard Assist,Minimum Assistance,1 Person Assist Distance (Feet) 15 Able to Maintain Weight Bearing Status Yes During Gait Assistive Devices Assistive Device Gait Belt,Front Wheeled Walker Gait Deviations General Gait Pattern Antalgic,Decreased Stride Length,Decreased Feet Clearance,Step-to Gait Factors Limiting Gait Function Factors Limiting Gait Function Difficulty Following Directions,Limited Range of Motion,Pain,Poor Balance,Poor Safety Awareness Comments Gait Comments PT cues pt to stay more centered in the walker for optimal support and ability to offload LLE. Stair Climbing Assessment Comments Stair Climbing Comments Not assessed PT-Balance Assessment Sitting Balance and Reactions Static Sitting Balance Ability Good Dynamic Sitting Balance Ability Good Standing Balance and Reactions Static Standing Balance Ability Fair Dynamic Standing Balance Ability Fair Device Used FWW M5 PT-IP Objective Assessments Start: 05/09/23 07:59 Freq: NEEDED Status: Active Protocol: Document 05/09/23 11:02 AW (Rec: 05/09/23 12:17 AW [id number]) Orientation Orientation/Cognition Level of Alertness Confusional State Orientation Name,Place,Situation Language Function Ability Hard of Hearing Safety Awareness Decreased Safety Awareness Memory Description Short Term Impaired Gross Range of Motion Upper Extremity ROM Assessment Within Functional Limits Lower Extremity ROM Assessment Left Impaired Strength Upper Extremity Strength Assessment Within Functional Limits Lower Extremity Strength Assessment Left Impaired Hip 3-/5 Knee 4/5 Comments Strength Comments RLE grossly 4/5 to 4+/5 Other Assessments Other Other Assessments BP 121/68 HR 79 supine BP 94/68 HR 82 sitting ( asymptomatic) BP 114/41 HR 100 after transfer M6 PT-IP Treatment Start: 05/09/23 07:59 Freq: NEEDED Status: Active Protocol: Document 05/09/23 15:59 AW (Rec: 05/09/23 16:12 AW [id number]) Physical Therapy Treatment Exercises Exercises Ankle Pumps,Gluteal Sets,Quad Sets,Heel Slides Education Education Provided Precautions,Safety M7 PT-IP Assessment and Plan Start: 05/09/23 07:59 Freq: NEEDED Status: Active Protocol: Document 05/09/23 15:59 AW (Rec: 05/09/23 16:12 AW [id number]) PT Summary Assessment and Plan Potential Rehabilitation Potential Good Summary Impairments Pain,ROM,Strength,Balance, Cognition,Bed Mobility, Transfers,Gait Progress Towards Goals Slow Progress due to Pain Assessment Summary Gopi is motivated to work with PT but needs consistent cues for hip precautions. He walked five feet further than at AM session but was grimacing by the end and looking quite fatigued. Transitional movements remain Gopi's biggest challenge - both in terms of pain and with precautions. Gopi should benefit from further acute PT. Recommend SNF rehab at discharge as of this writing. PT to conduct caregiver training tomorrow AM as pt will need near 24/7 assist at discharge to reduce his risk of hip dislocation. Goals Bed Mobility Goal Standby Assistance Transfer Goal Contact Guard Assistance,Front Wheeled Walker Gait Goal Contact Guard Assistance,Front Wheel Walker Gait Distance 50 Other Goals - up/down 2 steps using SPC and EXECUTIVE ADMINISTRATIVE ASSISTANT/min assist - Pt maintains posterior hip precautions with all mobility Days to Meet Goals 10 Frequency of Treatment Frequency Of Treatment Twice a Day Treatment Plan Physical Therapy Treatment Plan Bed Mobility Training,Transfer Training,Gait Training, Therapeutic Exercise,Balance Retraining,Post Op Education, Discharge Planning,Hot or Cold Pack,Neuromuscular Re-ed Other Recommendations and Next Treatment continued education on hip Focus precautions. gait with chair follow. caregiver training with spouse to assist with DCP Precautions Posterior Hip Precautions No Hip Flexion > 90 degrees,No Hip Internal Rotation,No Hip Adduction Weight Bearing Status Weight Bearing Status Weight Bear as Tolerated Recommendations To Nursing Amount of Assist Needed 1 Person Assist,2 Person Assist Discharge Recommendations PT Discharge Recommendations SNF Rehab Equipment Needed for Home Before FWW Discharge Transportation Needs at Discharge Wheelchair/Cabulance
[2023-05-09 16:00] VITALS: BP 130/57; PULSE 91; RESP 18; TEMP 38.3; O2SAT 94
--- NOTE | 2023-05-09 18:12 | PC.NURSE ---
pt was febrile, tylenol was already given, cold compresses. fever down to 99.0
[2023-05-09 19:28] VITALS: TEMP 37.1
[2023-05-09] MEDS: SENNOSIDES 8.6 MG TABLET 17.2 MG PO (20:45)
[2023-05-09] MEDS: IBUPROFEN 400 MG TABLET PO (20:45)
[2023-05-10 00:45] VITALS: BP 117/56; PULSE 73; RESP 16; TEMP 37.4; O2SAT 94
[2023-05-10 05:56] LABS: Add Manual Diff / Slide Review NO; Basophils Absolute Auto 0 /uL (0-100); Basophils Percent Auto 0.3 % (0-2); Eosinophils Absolute Auto 300 /uL (0-450); Eosinophils Percent Auto 3.3 % (2-4); Hematocrit 33.3 % (41-53); Hemoglobin 11.4 g/dL (13.5-17.5); Lymphocytes Absolute Auto 900 /uL (1100-4500); Lymphocytes Percent Auto 9.8 % (25-40); Mean Corpuscular HGB Conc 34.1 % (30-36); Mean Corpuscular Hemoglobin 30.9 PG (26-34); Mean Corpuscular Volume 90.5 fL (80-100); Monocytes Absolute Auto 600 /uL (0-900); Monocytes Percent Auto 6.6 % (3-14); Neutrophils Absolute Auto 7300 /uL (1500-7000); Platelet Count 129 X10^3/uL (150-400); Red Blood Cell Count 3.69 X10^6/uL (4.5-5.9); Red Cell Distribution Width 13.2 % (11.6-14.8); White Blood Cell Count 9.1 X10^3/uL (4.5-11.0)
[2023-05-10 06:06] LABS: Alanine Aminotransferase 25 IU/L (<50); Albumin 3.3 g/dL (3.5-5.0); Albumin Globulin Ratio 1.2 (1.0-2.8); Alkaline Phosphatase 55 U/L (38-126); Aspartate Aminotransferase 133 IU/L (17-59); BUN Creatinine Ratio 18.8 (6-22); Bilirubin Total 1.9 mg/dL (0.2-1.3); Blood Urea Nitrogen 18 mg/dL (9-20); Calcium 8.8 mg/dL (8.4-10.2); Carbon Dioxide 29 mmol/L (22-32); Chloride 101 mmol/L (98-107); Estimated Glomerular Filt Rate > 60 mL/min (>60); Globulin 2.7 g/dL (1.7-4.1); Glucose 92 mg/dL (80-110); HEMOLYSIS < 15 (0-50); Potassium 4.3 mmol/L (3.4-5.1); Sodium 135 mmol/L (137-145)
[2023-05-10 08:00] VITALS: BP 104/58; PULSE 86; RESP 16; TEMP 36.1; O2SAT 97
[2023-05-10] MEDS: DOCUSATE 100 MG CAPSULE PO (08:37)
[2023-05-10] MEDS: polyethylene glycoL 3350 17 GM POWD.PACK PO (08:37)
[2023-05-10] MEDS: ACETAMINOPHEN 325 MG TABLET 650 MG PO ×2 (08:38→13:06)
[2023-05-10] MEDS: ENOXAPARIN 40 MG/0.4 ML SYRINGE SUBCUT (08:38)
[2023-05-10] MEDS: IBUPROFEN 400 MG TABLET PO ×2 (08:38→13:06)
--- NOTE | 2023-05-10 09:33 | PT.IPTN ---
Current Diagnoses Fracture of unspecified part of neck of left femur, initial encounter for closed fracture (05/08/23) Presence of unspecified artificial hip joint (05/08/23) Surgery Performed Operation Date: 05/08/23 12:45 Actual Procedures p Hip Hemiarthroplasty(Left) - Brisa Garcia MD Physical Therapy Treatment Note M2 PT-IP Current Condition Start: 05/09/23 07:59 Freq: NEEDED Status: Active Protocol: Document 05/09/23 11:02 AW (Rec: 05/09/23 12:17 AW [id number]) Physical Therapy Current Condition Current Condition Evaluation Date 05/09/23 Treatment Diagnosis L femoral neck fx s/p hemiarthroplasty; impaired mobility and gait Onset Date 05/08/23 M3 PT-IP Subjective Start: 05/09/23 07:59 Freq: NEEDED Status: Active Protocol: Document 05/10/23 10:07 TS (Rec: 05/10/23 10:33 TS [id number]) Subjective Physical Therapy Visit Type Type Treatment Note Visit Start Time 09:33 Visit Stop Time 10:02 Total Visit Minutes 29 Notes Daughter and spouse present for caregiver training. Number of MOTORCYLES FINAL INSPECTOR Visits 1 Physical Therapy Visit Comments Patient Comments Pt reports feeling better today, agreeable to PT. Therapy Pain Assessment Pain When Pain Assessed During Mobility Pain Present Pain Present Pain Reported Location Left Hip Description With Movement Pain Behaviors Facial Grimacing,Wincing Pain Management Techniques Apply Cold,Timing of Activity with Medications M4 PT-IP Mobility and Gait Start: 05/09/23 07:59 Freq: NEEDED Status: Active Protocol: Document 05/10/23 10:07 TS (Rec: 05/10/23 10:33 TS [id number]) PT-Bed Mobility Assessment Supine to Sit Supine to Sit Standby Assistance,Minimal Assistance,1 Person Assistance ,Head of Bed Elevated Sit to Supine Sit to Supine Standby Assistance,Minimal Assistance,1 Person Assistance Scooting Scooting to Edge of Bed Contact Guard Assistance PT-Transfer Assessment Sit to and From Stand Sit to and from Stand Contact Guard Assistance, Minimal Assistance,1 Person Assistance,Use of Upper Extremities Equipment Transfer Assistive Device Gait Belt,Front Wheeled Walker Orthotic/Prosthetic Devices or Brace: No Transfers Transfer Destination Chair Transfer Technique Stand Step Pivot Transfer Ability Level of Assist Contact Guard Assistance,1 Person Assistance,Use of Upper Extremities Comments Mobility Comments Pt found resting in chair, agreeable to PT. He recalled 0 /3 on his posterior hip precautions, spouse recalled 2 /3 hip precautions(internal rotation). Prior to mobility instructed spouse in donning of gait belt. Sit to stand with spouse from chair Bari with FWW, required cues for hip flexion precautions. He ambulated ~60' CGA with FWW, gait is unsteady, makes wide turns, requires cues for avoiding objects. He performed stairs x3 Bari/ModA with handheld assist from daughter and spouse. He performed sit to supine initially Bari with cues for sequencing, progressed to SBA. Supine to sit SBA with BUE support and HOB 10D, required cues for hip flexion precautions. Pt transferred to chair CGA with cues for transfer sequencing and stand to sit. Pt was left in chair, chair alarm on, RN notified. Gait Assessment Gait Gait Assistance Required: Contact Guard Assist,1 Person Assist Distance (Feet) 60 Able to Maintain Weight Bearing Status Yes During Gait Assistive Devices Assistive Device Gait Belt,Front Wheeled Walker Orthotic/Prosthetic Devices or Brace: No Gait Deviations General Gait Pattern Antalgic,Decreased Stride Length,Decreased Feet Clearance,Lateral Trunk Lean Factors Limiting Gait Function Factors Limiting Gait Function Decreased Activity Tolerance, Decreased Strength,Difficulty Following Directions,Limited Range of Motion,Pain,Poor Balance,Poor Safety Awareness Comments Gait Comments See mobility comments. Stair Climbing Assessment Evaluation Level of Assist On Stairs Minimal Assistance,Moderate Assistance,2 Person Assistance Devices Stair Climbing Assistive Devices Left Railing,Right Railing Technique/Endurance Stair Climbing Direction Ascend and Descend Stair Climbing Technique Step to Step Number of Steps Climbed 3 Comments Stair Climbing Comments See mobility comments. PT-Balance Assessment Sitting Balance and Reactions Static Sitting Balance Ability Good Dynamic Sitting Balance Ability Good Standing Balance and Reactions Static Standing Balance Ability Fair Dynamic Standing Balance Ability Fair Device Used FWW M5 PT-IP Objective Assessments Start: 05/09/23 07:59 Freq: NEEDED Status: Active Protocol: Document 05/09/23 11:02 AW (Rec: 05/09/23 12:17 AW [id number]) Orientation Orientation/Cognition Level of Alertness Confusional State Orientation Name,Place,Situation Language Function Ability Hard of Hearing Safety Awareness Decreased Safety Awareness Memory Description Short Term Impaired Gross Range of Motion Upper Extremity ROM Assessment Within Functional Limits Lower Extremity ROM Assessment Left Impaired Strength Upper Extremity Strength Assessment Within Functional Limits Lower Extremity Strength Assessment Left Impaired Hip 3-/5 Knee 4/5 Comments Strength Comments RLE grossly 4/5 to 4+/5 Other Assessments Other Other Assessments BP 121/68 HR 79 supine BP 94/68 HR 82 sitting ( asymptomatic) BP 114/41 HR 100 after transfer M6 PT-IP Treatment Start: 05/09/23 07:59 Freq: NEEDED Status: Active Protocol: Document 05/10/23 10:07 TS (Rec: 05/10/23 10:33 TS [id number]) Physical Therapy Treatment Education Education Provided Precautions,Safety M7 PT-IP Assessment and Plan Start: 05/09/23 07:59 Freq: NEEDED Status: Active Protocol: Document 05/10/23 10:07 TS (Rec: 05/10/23 10:33 TS [id number]) PT Summary Assessment and Plan Potential Rehabilitation Potential Good Summary Impairments Pain,ROM,Strength,Balance, Cognition,Bed Mobility, Transfers,Gait Progress Towards Goals Progressing Toward Goals Assessment Summary Gopi is making good progress with his mobility this session . He completed caregiver training with family. He is CGA/Bari for sit to stands with FWW, requires some cueing for hip precautions. He progressed his gait to ~60' CGA, continues to require cueing for gait and avoiding obstacles. He progressed to stairs x3 Bari/ModA with 2PA from family. Spouse and daughter were instructed and performed gait belt training, sit to stand technique, gait and stair training. PT recommends pt return home with 24/7 assist and HHPT. Goals Bed Mobility Goal Standby Assistance Transfer Goal Contact Guard Assistance,Front Wheeled Walker Gait Goal Contact Guard Assistance,Front Wheel Walker Gait Distance 50 Other Goals - up/down 2 steps using SPC and MONOGRAM MAKER/min assist - Pt maintains posterior hip precautions with all mobility Days to Meet Goals 10 Frequency of Treatment Frequency Of Treatment Twice a Day Treatment Plan Physical Therapy Treatment Plan Bed Mobility Training,Transfer Training,Gait Training, Therapeutic Exercise,Balance Retraining,Post Op Education, Discharge Planning,Hot or Cold Pack,Neuromuscular Re-ed Other Recommendations and Next Treatment continued education on hip Focus precautions. gait with chair follow. Precautions Posterior Hip Precautions No Hip Flexion > 90 degrees,No Hip Internal Rotation,No Hip Adduction Weight Bearing Status Weight Bearing Status Weight Bear as Tolerated Recommendations To Nursing Amount of Assist Needed 1 Person Assist Discharge Recommendations PT Discharge Recommendations Home with 24/7 Assist Available,Home Health Equipment Needed for Home Before FWW Discharge Transportation Needs at Discharge Private Vehicle
--- NOTE | 2023-05-10 10:30 | OT.IP.TRT ---
Current Diagnoses Fracture of unspecified part of neck of left femur, initial encounter for closed fracture (05/08/23) Presence of unspecified artificial hip joint (05/08/23) Surgery Performed Operation Date: 05/08/23 12:45 Actual Procedures p Hip Hemiarthroplasty(Left) - Brisa Garcia MD Occupational Therapy Treatment Note M2 OT-IP Current Condition Start: 05/09/23 14:15 Freq: Status: Active Protocol: Document 05/09/23 14:16 [facility] (Rec: 05/09/23 14:27 [facility] [id number]) Occupational Therapy Current Condition Current Condition Evaluation Date 05/09/23 Treatment Diagnosis Fall with L hip fx, 05/08 hemiarthroplasty L hip Diagnosis Onset Date 05/08/23 Post Operative Precautions Posterior Hip Precautions No Hip Flexion > 90 degrees,No Hip Internal Rotation,No Hip Adduction Weight Bearing Status Weight Bearing Status Weight Bear as Tolerated M3 OT- IP Subjective and Pain Start: 05/09/23 14:15 Freq: Status: Active Protocol: Document 05/10/23 10:30 [facility] (Rec: 05/10/23 12:22 [facility] [id number]) OT- Subjective Occupational Therapy Visit Type Type Treatment Note Visit Start Time 10:30 Visit Stop Time 11:20 Total Visit Minutes 50 Occupational Therapy Visit Comments Patient Comments Pt's daugther and in the room for caregiver training. Patient/Caregiver Goals TO go home. OT Pain Assessment Pain When Pain Assessed At Rest Pain Present Pain Present Denied Pain M4 OT- IP ADL's Start: 05/09/23 14:15 Freq: Status: Active Protocol: Document 05/10/23 10:30 [facility] (Rec: 05/10/23 12:22 [facility] [id number]) OT SYQ-Avtt-Ptpodel Comments OT Self-Feeding Comments Not at meal time. OT ADL-Grooming General Evaluation Grooming Ability Standby Assistance OT ADL-Oral Care Comments Oral Care Comments Not performed. OT ADL-Dressing General Eval Areas Needing Assistance Socks Comments OT Dressing Comments MAXA X 1 for LB dressing needs due to hip precautions. OT ADL-Toileting Comments OT Toileting Comments Suggested pt gets BSC, urinal, and pt to continue to wear depends. OT ADL-Bathing Bathing Type Bathing Type Shower General Evaluation Bathing Ability Maximal Assistance Areas Needing Assistance Wash/Dry Back,Wash/Dry Perineal Area,Wash/Dry Lower Extremities Comments OT Bathing Comments Pt will benefit from a shower chair with arms, long handled shower spray, and bath aid to assist at home. Able to educate pt' how to assist pt for ADL needs and transfers. M5 OT- IP IADL's Start: 05/09/23 14:15 Freq: Status: Active Protocol: Document 05/09/23 14:16 [facility] (Rec: 05/09/23 14:27 [facility] [id number]) OT-Instrumental Activities of Daily Living Deficits IADL Deficits Identified Deficits Home Safety Awareness Awareness of Need for Assistance at Home Decreased Awareness Ability to Problem Solve Emergency Unable to Problem Solve Situations Medication Management Medication Management Caregiver Administers Money Management Money Management Caregiver Provides Assistance Meal Preparation Meal Preparation Caregiver Provides Assist Clear Coat Sprayer Clear Coat Sprayer Caregiver Provides Assist Driving Driving Comments Per pt and , pt does still drive. M6 OT- IP Functional Cognition Start: 05/09/23 14:15 Freq: Status: Active Protocol: Document 05/10/23 10:30 [facility] (Rec: 05/10/23 12:22 [facility] [id number]) Cognitive Factors Limiting Selfcare Function Cognitive Ability Level of Alertness Alert Patient Orientation Name,Age,Birthday,Month,Date, Year,Day of Week,Place, Situation Attention Span Ability Capable of Focused Attention, Capable of Sustained Attention Ability to Follow Commands Able to Follow One Step Commands with Increased Time, Able to Follow One Step Commands with Repetition Memory Description Short Term Impaired Cognitive Comments Cognitive Assessment Comments Pt decreased short term memory and not able to recall his hip precautions and needing cue to follow them during ADL and mobility needs. VC to slide his LLE forwards prior to standing and sitting down. Educated best to tell the pt what to do instead on asking him. IN addition pt also does well with tactile cues. Pt also functions better with simple concrete commands. M7 OT- IP Mobility and Balance Start: 05/09/23 14:15 Freq: Status: Active Protocol: Document 05/10/23 10:30 [facility] (Rec: 05/10/23 12:22 [facility] [id number]) OT- Bed Mobility Assessment Sit to Supine Sit to Supine Assist Moderate Assistance Scooting Scooting to Edge of Bed Standby Assistance,Contact Guard Assistance OT-Transfer Assessment Sit to and From Stand Sit to and from Stand Minimal Assistance,Moderate Assistance Transfers Transfer Ability Contact Guard Assistance, Minimal Assistance Technique Transfer Destination Chair,Shower Stall Transfer Technique Stand Step Pivot Devices Transfer Assistive Devices Gait Belt,Front Wheeled Walker Comments Mobility Comments Pending on height of the surface, pt needing CGA to MODA to stand. OT- Balance Assessment Sitting Balance and Reactions Static Sitting Balance Ability Good Dynamic Sitting Balance Ability Good Standing Balance and Reactions Static Standing Balance Ability Good Dynamic Standing Balance Ability Fair M8 OT- IP Objective Assessments Start: 05/09/23 14:15 Freq: Status: Active Protocol: Document 05/09/23 14:16 [facility] (Rec: 05/09/23 14:27 [facility] [id number]) OT Gross Range of Motion Upper Extremity Range of Motion Assessment Within Functional Limits OT Strength Upper Extremity Strength Assessment Within Functional Limits Comments Strength Comments 10/29 OT- Coordination Assessment Upper Extremity Finger to Nose Test Within Functional Limits Finger Tapping Test Within Functional Limits OT-Muscle Tone Assessment Muscle Tone WNL Yes OT Sensation Assessment Edema Edema Absent M9 OT- IP Assessment and Plan Start: 05/09/23 14:15 Freq: Status: Active Protocol: Document 05/10/23 10:30 [facility] (Rec: 05/10/23 12:22 [facility] [id number]) OT Summary Assessment and Plan Potential Rehabilitation Potential Good Analytic Complexity at Evaluation Moderate Summary OT Impairments Pain,Balance,Functional Cognition,Functional Mobility, Grooming,Dressing,Toileting, Bathing,Toilet Transfers, Shower Transfers,Activity Tolerance Progress Towards Goals Progressing Toward Goals,Slow Progress due to Cognition Assessment Summary Able to go over equipment needs with pt's family and caregiver training for showering and dressing needs. Suggested pt get FWW, shower chair with arms, HHSP, bed side commode. Pt will benefit from 24/7 assist to be sure to follow his posterior hip precautions and have home health and bath aid. Goals Grooming Goal Independent Dressing Goal Standby Assistance,Freelance Court Reporter, Sock Aid Toileting Goal Standby Assistance Bathing Goal Standby Assistance Toilet Transfer Goal Standby Assistance Shower Transfer Goal Standby Assistance Days to Meet Goals 7 Frequency of Treatment Frequency Of Treatment Once a Day Treatment Plan OT Treatment Plan ADL Training,Functional Cognition Training,Functional Mobility,Patient/Family Education,Discharge Planning Discharge Recommendations OT Discharge Recommendations Home with 24/7 Assist Available,Home Health Home Equipment Needs BSC, shower chair, HHSP, FWW Transportation Needs at Discharge Private Vehicle
--- NOTE | 2023-05-10 10:31 | P.PN_ITS ---
Subjective Subjective Date Patient Seen: 05/10/23 Time Patient Seen: 10:31 Interval history: Patient's hip pain is mild. No fever or chills. No nausea or vomiting. Patient was able to walk out in halls today. Exam Vital Signs (past 8 hours): - 05/10/23 08:00 Temperature 97.0 F L Pulse Rate 86 Respiratory Rate 16 Blood Pressure 104/58 L Pulse Oximetry 97 Oxygen Flow Rate 0 Oxygen Delivery Method Room Air Oxygen Flow Rate 0 Narrative Exam Narrative: 88-year-old male resting comfortably at bedside chair in no apparent distress. Dressing is clean, dry and intact. Scant drainage noted. Motor function is intact bilateral lower extremities. Sensation grossly intact to light touch bilateral lower extremities. Const General: cooperative and comfortable Nutritional Appearance: average body habitus Resp Effort & Inspection: normal respiratory effort and able to speak in complete sentences Objective Labs 05/10/23 05:35 05/10/23 05:35 Labs: Laboratory Results - last 24 hr 05/10/23 05:35 WBC 9.1 RBC 3.69 L Hgb 11.4 L Hct 33.3 L MCV 90.5 MCH 30.9 MCHC 34.1 RDW 13.2 Plt Count 129 L Neut % (Auto) 80.0 H Lymph % (Auto) 9.8 L [place] % (Auto) 6.6 Eos % (Auto) 3.3 Baso % (Auto) 0.3 Neut # (Auto) 7300 H Lymph # (Auto) 900 L [place] # (Auto) 600 Eos # (Auto) 300 Baso # (Auto) 0 Sodium 135 L Potassium 4.3 Chloride 101 Carbon Dioxide 29 BUN 18 Creatinine 0.96 Estimated GFR > 60 BUN/Creatinine Ratio 18.8 Glucose 92 Calcium 8.8 Total Bilirubin 1.9 H AST 133 H ALT 25 Alkaline Phosphatase 55 Total Protein 6.0 L Albumin 3.3 L Globulin 2.7 Albumin/Globulin Ratio 1.2 PFSH Social History marital status: household members: spouse Smoking Status: Never smoker Assessment & Plan Post-op Postoperative Procedures: Procedures Operation Date: 05/08/23 12:45 Actual Procedure Side Surgeon p Hip Hemiarthroplasty Left Brisa Garcia MD Postoperative day: 2 Postoperative status: doing well Postoperative status narrative: Stable status post hemiarthroplasty left hip for femoral neck fracture May 08, 2023 Postoperative plan narrative: Weightbear as tolerated Posterior hip precaution x6 weeks Pillows between the legs while in bed or if unable to keep regular pillows then abduction pillow Ambulate with the assistive device Lovenox 40 mg subQ for DVT prophylaxis x4 weeks for 28 total days 2 doses of Ancef postop antibiotics Dispo when medically stable Follow up in Orthopedic Clinic in 2 weeks for staple removal
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
--- NOTE | 2023-05-10 15:40 | CM.DPC ---
Addendum entered and electronically signed by Demi Alvarez RIVER 05/10/23 15:45: [facility] , [facility] , Germaine Original Note: DCP Cont. Reviewed EMR and team rounds for updates. Per family, their preference for d/c is now home with HH, [facility] was sent clinicals to review. His insurance CM faxed us information re: her contact in order to assist with out of state authorizations. SECONDS INSPECTOR called her, she is now working with [facility] to obtain an auth for HH until he can safely/medically return home. and dtr are both very involved. Plan to f/u with [place] in the am to clarify acceptance and move forward. Called [facility] and requesting return call to confirm that they can sign HH orders until pt returns home out of state. Plan to f/u Wed. am to confirm and notify [facility].
--- NOTE | 2023-05-10 16:44 | PC.NURSE ---
Discharge: Feels ready to d/c to home today. Is oriented mostly, off for date, time and some events, knew he was in the [facility] but not why he is here. Reoriented easily. Taking his meds w/out diff. Has been up with one person, needs the most help getting up but once up he is sba and walker. Gait is steady. Pt reports he is also feeling better. No narcotic use per his request. Only taking tylenol and ibuprofen. Pt reports meds have been effective. PT worked with patient and family members, patient care director training. They were able to complete that to physical therapy satisfaction. Seen by ortho GERA nd given d/c instructions. Seen by Dr. Rojas and given instructions. Given d/c packet and reviewed. There was concern pt had lost his hearing aids but they were found in the bed by . She kept them and took them home. Spouse here at time of teaching. Questions answered. Pt d/c to home via auto with spouse and dtr.
== END 2023-05-10 15:47 | disposition home health service (06) | DRG 522 ==
LOC: ED 10:05 → AC 10:16
PROVIDERS: Internal Medicine; Orthopaedic Surgery Foot and Ankle Surgery; Admitting Provider Family Medicine; Emergency Provider Emergency Medicine; Referring Provider Emergency Medicine; Visit Provider Family Medicine
PROC: 0SRS0JZ Replacement of Left Hip Joint, Femoral Surface with Synthetic Substitute, Open Approach (ICD-10-PCS; CPT 27125; principal; 2023-05-08 12:45)
DX: M80.052A Age-related osteoporosis with current pathological fracture, left femur, initial encounter for fracture (principal); D64.9 Anemia, unspecified; S50.02XA Contusion of left elbow, initial encounter; R79.89 Other specified abnormal findings of blood chemistry; E80.6 Other disorders of bilirubin metabolism; F03.90 Unspecified dementia, unspecified severity, without behavioral disturbance, psychotic disturbance, mood disturbance, and anxiety; W18.30XA Fall on same level, unspecified, initial encounter; I49.3 Ventricular premature depolarization
CPT/HCPCS: 36415; 72170; 73502; 80053; 85025; 93005; 93010; 96374; 97116; 97162; 97166; 97530; 97535; 99284; 99285; C1776; C9290; J0171; J0690; J1100; J1170; J1650; J2270; J2405; J2704; J3010; J3490